=== PATIENT | female | born 1945 | race Caucasian/White ===

== ENCOUNTER 2018-05-25 18:08 | Emergency (ER) | payer MEDICARE, OTHER ==
[2018-05-25] MEDS ORDERED: diPHENhydraMINE PO* 50 MG PO ONE (18:34)
[2018-05-25] MEDS ORDERED: Famotidine TAB* 20 MG PO ONE (18:34)
[2018-05-25] MEDS ORDERED: predniSONE TAB* 20 MG PO ONE (18:34)
--- NOTE | 2018-05-25 18:34 | UC ---
Skin Complaint HPI - HPI Summary HPI Summary: The pt is a 73 y/o female presenting to s/p a bee sting since 1 hr. ago. She was stung under the eye while in the garden. She applied baking soda to no relief. The pt equates the sharp pain to being hit by a car. She notes palpitations, diarrhea and cough but denies SOB and difficulty swallowing. The pain is alleviated by lying down. The pt denies a hx of bee allergies. This is scribe Erica Koroma documenting for attending Dr. Tracy Jones, Dr. Molina , personally performed the services described in this documentation as scribed in my presence and it is both accurate and complete. - History of Current Complaint Chief Complaint: UCSkin Time Seen by Provider: 05/25/18 18:26 Stated Complaint: BEE STING Hx Obtained From: Patient, Family/Clarifying Plant Operator Onset/Duration: Sudden Onset - 1 hr ago Skin Exposure Onset/Duration: Hours Ago Timing: Constant Onset Severity: Severe Current Severity: Mild Pain Intensity: 0 Pain Scale Used: 0-10 Numeric Location: Diffuse - Below L eye Alleviating Factor(s): Other - Lying down Associated Signs & Symptoms: Positive: Negative - SOB , difficulty swallowing, Cough. Negative: Difficulty Breathing - Allergy/Home Medications Allergies/Adverse Reactions: Allergies Allergy/AdvReac Type Severity Reaction Status Date / Time No Known Allergies Allergy Verified 05/25/18 18:21 Home Medications: Home Medications Atorvastatin* [Lipitor 20 MG*] 20 mg PO DAILY 05/25/18 [History Confirmed ] amLODIPine TAB* [Norvasc 5 mg TAB*] 5 mg PO DAILY 05/25/18 [History Confirmed ] Review of Systems ENT: Negative - Difficulty swallowing Respiratory: Negative - SOB, Cough Cardiovascular: Palpitations Gastrointestinal: Diarrhea All Other Systems Reviewed And Are Negative: Yes PMH/Surg Hx/FS Hx/Imm Hx Previously Healthy: No - No known hx of HLD,CAD and DM Cardiovascular History: Hypertension - Surgical History Surgical History: Yes Surgery Procedure, Year, and Place: RT HIP REPLACEMNT, [facility], - Family History Known Family History: Positive: Cardiac Disease - Paternal CAD - Social History Occupation: Retired Lives: With Family Alcohol Use: Occasionally Substance Use Type: None Smoking Status (MU): Never Smoked Tobacco Physical Exam - Summary Physical Exam Summary: General: well-appearing, no pain distress Skin: warm, color reflects adequate perfusion, dry Head: Swelling of the L cheek Eyes: Erythema over the L eye, L scleral injection, EOMI, DEJAH ENT: normal Neck: supple, nontender Respiratory: Airways are open, CTA, breath sounds present Cardiovascular: RRR Abdomen: soft, nontender Bowel: present Musculoskeletal: normal, strength/ROM intact Neurological: sensory/motor intact, A&O x3 Psychological: affect/mood appropriate Triage Information Reviewed: Yes Vital Signs: Initial Vital Signs Temp 97.5 F 05/25/18 18:17 Pulse 65 05/25/18 18:17 Resp 20 05/25/18 18:17 BP 191/78 05/25/18 18:17 Pulse Ox 98 05/25/18 18:17 Vital Signs Reviewed: Yes Re-Evaluation - Re-Evaluation First Eval Re-Evaluation Time: 20:02 Change: Improved - The pt feels better and is ready to go home. Course/Dx - Course Course Of Treatment: IMPROVED IN CLINIC. - Diagnoses Provider Diagnoses: BEE STING FACE. ALLERGIC REACTION TO BEE STING Discharge - Sign-Out/Discharge Documenting (check all that apply): Patient Departure - Discharge Plan Condition: Stable Disposition: HOME Prescriptions: EPINEPHrine [Epipen 2-Russ] 0.3 mg IM ONCE PRN #1 inj PRN Reason: Allergy Symptoms Famotidine TAB* [Pepcid 20 MG TAB*] 20 mg PO BID PRN #8 tab PRN Reason: Allergy Symptoms predniSONE TAB* [Deltasone 20 MG TAB*] 40 mg PO DAILY PRN #8 tab PRN Reason: Allergy Symptoms Patient Education Materials: Insect Bite or Sting (ED), General Allergic Reaction (ED) Referrals: Madisyn Meza MD [Primary Care Provider] - Additional Instructions: FOLLOW UP WITH YOUR DOCTOR. TAKE BENADRYL 50MG EVERY 6 HOURS NEEDED. CONTINUE THE PEPCID AND PREDNISONE DIRECTED IF NEEDED. GET RECHECKED FOR ANY WORSENING OF YOUR CONDITION OR QUESTIONS OR CONCERNS. - Billing Disposition and Condition Condition: STABLE Disposition: Home
[2018-05-25 18:47] VITALS: BP 147/61
== END 2018-05-25 20:19 | disposition home or self-care (01) ==
LOC: UCEAST 18:08
DX: T63.441A Toxic effect of venom of bees, accidental (unintentional), initial encounter (principal); Y92.007 Garden or yard of unspecified non-institutional (private) residence as the place of occurrence of the external cause; I10 Essential (primary) hypertension
CPT/HCPCS: 99212; A9270-GY; G0463; J7512

== ENCOUNTER 2019-02-27 12:24 | Emergency (ER) | payer MEDICARE, OTHER ==
[2019-02-27 12:31] VITALS: BP 170/61
--- NOTE | 2019-02-27 12:38 | UC ---
General HPI - HPI Summary HPI Summary: Wasp bite on right hand today around noon when getting her mail out of the mailbox - last summer she had a wasp bite and had felt awful - like she had been hit by a car, palpitations and diarrhea. At that time she was given an epipen. No SOB or swelling at that time. Immediately after her sting she used her epipen and drove directly here. No mouth or tongue, or throat swelling. No cough or wheeze. No abdominal pain or vomiting. No rash. Feels a little off/jittery. Meds; reviewed - History of Current Complaint Chief Complaint: UCAllergicReaction Stated Complaint: ALLERGIC REACTION TO WASP STING Time Seen by Provider: 02/27/19 12:30 Pain Intensity: 5 - Allergy/Home Medications Allergies/Adverse Reactions: Allergies Allergy/AdvReac Type Severity Reaction Status Date / Time bee venom protein (honey bee) Allergy Anaphylatic Verified 02/27/19 12:31 Shock PMH/Surg Hx/FS Hx/Imm Hx Previously Healthy: Yes Cardiovascular History: Hypertension - Surgical History Surgical History: Yes Surgery Procedure, Year, and Place: Bilat HIP REPLACEMNT, [facility], - Family History Known Family History: Positive: Cardiac Disease - Paternal CAD - Social History Alcohol Use: Occasionally Substance Use Type: None Smoking Status (MU): Never Smoked Tobacco Review of Systems All Other Systems Reviewed And Are Negative: Yes Physical Exam Triage Information Reviewed: Yes Appearance: Well-Appearing Vital Signs: Initial Vital Signs Temp 97.3 F 02/27/19 12:26 Pulse 71 02/27/19 12:26 Resp 16 02/27/19 12:26 BP 170/61 02/27/19 12:26 Pulse Ox 96 02/27/19 12:26 Vital Signs Reviewed: Yes ENT: Positive: Normal ENT inspection Neck: Positive: Supple, Nontender Respiratory: Positive: Chest non-tender, Normal breath sounds Cardiovascular: Positive: RRR, No Murmur Abdomen Description: Positive: Soft Skin Exam: Normal Course/Dx - Course Course Of Treatment: This is a 74 yr old with a concern for anaphylaxis to wasps had another bite today s/p epi pen Assessment Monitored for 2 hours post wasp bite with no systems of anaphylaxis - really no symptoms at all. DIscussed that she may not actually have a true anaphylaxis allergy to wasps. Based on her presentation last summer it did not seem to be anaphylaxis but more of an adverse reaction to wasp bite. Will treat for anaphylaxis as a precautionary Plan Recommend prednisone 20 mg daily for 5 days Pepcid 20 mg daily for 5 days Benadryl as needed for itching or rash Keep epipen on hand for now as needed REcommend following up with an welder boilermaker - Diagnoses Provider Diagnosis: Wasp sting, Anaphylactic reaction Discharge - Sign-Out/Discharge Documenting (check all that apply): Patient Departure All imaging exams completed and their final reports reviewed: No Studies - Discharge Plan Condition: Good Disposition: HOME Prescriptions: Famotidine TAB* [Pepcid 20 MG TAB*] 20 mg PO DAILY #5 tab predniSONE [Prednisone 20 MG TAB] 20 mg PO DAILY #5 tablet Referrals: Madisyn Meza MD [Primary Care Provider] - Argenis Franz MD [Medical Doctor] - Additional Instructions: Your reaction to wasp sting may be an adverse reaction rather than a true anphylaxis reaction Recommend prednisone 20 mg daily for 5 days Pepcid 20 mg daily for 5 days Benadryl as needed for itching or rash Keep epipen on hand for now as needed REcommend following up with an welder boilermaker - Billing Disposition and Condition Condition: GOOD Disposition: Home
--- OUTSIDE RECORDS SUMMARY | 2019-02-27 12:45 | XMS REPORT | Continuity of Care Document ---
:1945 External Reference #:[id number] Author Name SharathcarolSherry Care Team Providers Name Role Phone Madisyn Meza MD Primary Care Physician Unavailable Payers Date Identification Numbers Payment Provider Subscriber Effective: 2009 Policy Number: [id number] Medicare Marilou Padilla PayID: [id number] [address] [place] [address] Expires: 2016 Policy Number: [id number] [employer] Davon Magaña Group Number: [id number] [address] PayID: [id number] [place] [address] Policy Number: [id number] [employer]-[facility] Marilou Padilla PayID: [id number] [address] [place] [address] Advance Directives Type Date Description Status Comment [facility] 06/24/2014 MOL Current and Verified Problems Date Description Provider Status Onset: 01/12/2012 Benign essential hypertension Marlene Barrera M.D. Active Onset: 02/14/2012 Hyperlipidemia Marlene Barrera M.D. Active Family History Date Family Member(s) Observation Comments : (age 82 Father due to Unknown pt reports he had Years) Causes coronary problems but did not cause his . 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 ETOH Use Consumes 1 glass of with dinner wine per day Tobacco Use Start: Unknown Patient has never smoked Recreational Drug Use Denies Drug Use Smoking Status Reviewed: 01/30/19 Patient has never smoked Exercise Type/Frequency Exercises regularly Exercise Type/Frequency walks dog daily Allergies, Adverse Reactions, Alerts Date Description Reaction Status Severity Comments 01/07/2012 NKDA Active 05/29/2018 Bee Sting Anaphylaxis Active Medications Medication Date Status Form Strength Qnty SIG Indications Ordering Provider Azithromycin 01/30 Active Tablets 250mg 6tabs 2 tabs by mouth R05 on day 1; 1 tab Cotton, by mouth every M.D. day on days 2-5 Benzonatate 01/30 Active Capsules 200mg 30cap take 1 capsule R05 s by mouth three Cotton, times a day if M.D. needed Diclofenac 11/20 Active Gel 1% 100un apply not more M19.049 Madisyn Sodium its than 2 grams to Cotton, the hands 4 M.D. times a day as needed Atorvastatin 08/19 Active Tablets 10mg 90tab take one tablet Madisyn s by mouth every Cotton, day M.D. Fish Oil Active Capsules [address] de la garza Norvasc Active Tablets 5mg 90tab 1 by mouth Madisyn /0000 s every day Cotton, M.D. Tylenol 8 Active Tablets 650mg one every 6 Unknown Hour /0000 ER hours as needed Arthritis for pains Pain Epipen 2-Russ Active Solution 0.3mg/0.3 use as directed Auto-Inje ML ct Tobramycin 01/28 Hx Solution 0.3% 5ml 2 drops in H10.9 affected eye Cotton, - every 4 hours M.D. 10/24 while awake until clear- should take 4-5 days Doxycycline 08/19 Hx Capsules 100mg 2caps take 2 tablets Madisyn Hyclate one time Cotton, - M.D. 08/21 Fyi 11/01 Hx Tablets 10mg 90tab take one tablet s by mouth every Cotton, - day M.D. 11/13 Estrace 08/22 Hx Cream 0.1mg/GM 42.50 insert 1-2 627.3 0gm g/day Shlomo, - intravaginally M.D. 11/13 for 1 week, then reduce to 1/2 the initial dose for 1 week, then 1 g/week for maintenance [facility] 01/23 Hx Tablets 5mg 30tab 1/2 po qd Kingsley s Wanda Echevarria M.DYazmin 01/31 [facility] 01/11 Hx Tablets 5mg 30tab 1 po qd Qutayb s Joni Barrera, 01/23 M.D. /2011 Probiotic Hx Capsules 1 po qd Unknown /0000 - 02/13 Calcium Hx Tablets 1 po qd Unknown /0000 - 02/13 Multiple Hx Tablets 100ta 1 po qd Unknown Vitamin /0000 bs - 05/02 Immunizations CPT Code Status Date Vaccine Lot # [id number] Given 07/11/2018 Influenza Virus Vaccine, Quadrivalent, Split, [id number] Preservative Free 86890 Given 08/12/2017 Fluzone High Dose 86960 Given 11/01/2014 Pneumococcal Conjugate Vaccine 13 Valent For [id number] Intramuscular Use 56611 Given 10/30/2013 Zoster (Zostavax) [id number] 99644 Given 08/22/2013 Pneumonia Vaccine [id number] Vital Signs Date Vital Result Comment 01/30/2019 10:19am Height 64.5 inches 5'4.50" Weight 165.00 lb Heart Rate 71 /min BP Systolic Sitting 162 mmHg BP Diastolic Sitting 81 mmHg Body Temperature 100.8 F O2 % BldC Oximetry 95 % BMI (Body Mass Index) 27.9 kg/m2 12/19/2018 8:29am Height 64.5 inches 5'4.50" Heart Rate 80 /min BP Systolic Sitting 138 mmHg BP Diastolic Sitting 71 mmHg O2 % BldC Oximetry 97 % 11/20/2018 3:26pm Height 64.5 inches 5'4.50" Weight 166.00 lb Heart Rate 60 /min BP Systolic Sitting 117 mmHg BP Diastolic Sitting 63 mmHg O2 % BldC Oximetry 97 % BMI (Body Mass Index) 28.1 kg/m2 11/17/2017 2:41pm Height 64.5 inches 5'4.50" Weight 152.75 lb Heart Rate 61 /min BP Systolic 140 mmHg BP Diastolic 68 mmHg Body Temperature 98.2 F O2 % BldC Oximetry 97 % BMI (Body Mass Index) 25.8 kg/m2 10/25/2017 11:01am Height 65 inches 5'5" Weight 150.12 lb without shoes Heart Rate 56 /min BP Systolic Sitting 122 mmHg LA, reg cuff BP Diastolic Sitting 66 mmHg LA, reg cuff BMI (Body Mass Index) 25.0 kg/m2 Ejection Fraction 60%-65% echo 01/21/12 01/28/2017 4:53pm Heart Rate 56 /min BP Systolic Sitting 116 mmHg BP Diastolic Sitting 78 mmHg Body Temperature 98.5 F O2 % BldC Oximetry 96 % 11/15/2016 10:27am Height 64 inches 5'4" Weight 154.00 lb Heart Rate 82 /min BP Systolic Sitting 136 mmHg BP Diastolic Sitting 72 mmHg Body Temperature 98.0 F O2 % BldC Oximetry 97 % BMI (Body Mass Index) 26.4 kg/m2 11/01/2016 10:18am Height 64 inches 5'4" Weight 157.00 lb Heart Rate 59 /min BP Systolic 128 mmHg BP Diastolic 62 mmHg Body Temperature 97.7 F O2 % BldC Oximetry 98 % BMI (Body Mass Index) 26.9 kg/m2 09/23/2016 1:27pm Height 64 inches 5'4" Weight 156.75 lb Heart Rate 60 /min BP Systolic Sitting 138 mmHg LA reg BP Diastolic Sitting 74 mmHg LA reg BMI (Body Mass Index) 26.9 kg/m2 Ejection Fraction 60%-65% 01/31/12 11/13/2015 11:01am Height 64 inches 5'4" Weight 146.75 lb Heart Rate 60 /min BP Systolic Sitting 124 mmHg BP Diastolic Sitting 72 mmHg Body Temperature 96.3 F O2 % BldC Oximetry 98 % BMI (Body Mass Index) 25.2 kg/m2 08/19/2015 1:07pm Height 65 inches 5'5" Weight 146.25 lb with out shoes Heart Rate 64 /min BP Systolic Sitting 132 mmHg LA reg cuff BP Diastolic Sitting 82 mmHg LA reg cuff Respiratory Rate 16 /min BMI (Body Mass Index) 24.3 kg/m2 Ejection Fraction 60-65% date 01/31/12 ECHO 05/01/2015 11:11am Weight 150.00 lb Heart Rate 57 /min BP Systolic Sitting 138 mmHg BP Diastolic Sitting 76 mmHg Body Temperature 96.8 F 11/01/2014 10:27am Height 65 inches 5'5" Weight 152.00 lb Heart Rate 62 /min BP Systolic 144 mmHg BP Diastolic 72 mmHg Body Temperature 98.3 F BMI (Body Mass Index) 25.3 kg/m2 10/22/2014 11:27am Height 65 inches 5'5" Weight 151.00 lb Heart Rate 59 /min BP Systolic Sitting 154 mmHg BP Diastolic Sitting 82 mmHg Body Temperature 97.7 F O2 % BldC Oximetry 98 % BMI (Body Mass Index) 25.1 kg/m2 06/20/2014 3:57pm Height 65 inches 5'5" Weight 151.00 lb Heart Rate 84 /min BP Systolic 142 mmHg LA sitting regular cuf BP Diastolic 80 mmHg LA sitting regular cuf BMI (Body Mass Index) 25.1 kg/m2 04/01/2014 9:03am Height 65 inches 5'5" Weight 150.00 lb Heart Rate 68 /min BP Systolic Sitting 120 mmHg BP Diastolic Sitting 64 mmHg BMI (Body Mass Index) 25.0 kg/m2 11/13/2013 9:57am Weight 161.50 lb Heart Rate 72 /min BP Systolic 124 mmHg BP Diastolic 64 mmHg 10/30/2013 9:47am Weight 160.00 lb Heart Rate 64 /min BP Systolic Sitting 142 mmHg BP Diastolic Sitting 80 mmHg 08/22/2013 1:31pm Height 64.25 inches 5'4.25" Weight 157.25 lb Heart Rate 58 /min BP Systolic Sitting 126 mmHg BP Diastolic Sitting 64 mmHg BMI (Body Mass Index) 26.8 kg/m2 05/02/2013 10:58am Height 65 inches 5'5" Weight 154.00 lb Heart Rate 54 /min BP Systolic Sitting 140 mmHg BP Diastolic Sitting 80 mmHg Respiratory Rate 20 /min BMI (Body Mass Index) 25.6 kg/m2 02/14/2012 1:46pm Height 65 inches 5'5" Weight 155.00 lb Heart Rate 72 /min BP Systolic Sitting 126 mmHg BP Diastolic Sitting 62 mmHg BMI (Body Mass Index) 25.8 kg/m2 01/24/2012 3:41pm Height 65 inches 5'5" Weight 154.00 lb Heart Rate 58 /min BP Systolic Sitting 140 mmHg L BP Diastolic Sitting 70 mmHg L BMI (Body Mass Index) 25.6 kg/m2 01/12/2012 1:06pm Height 65 inches 5'5" Weight 153.00 lb BP Systolic 160 mmHg right arm, left arm 162/82 BP Diastolic 86 mmHg right arm, left arm 162/82 BP Systolic Sitting 172 mmHg right arm BP Diastolic Sitting 98 mmHg right arm BMI (Body Mass Index) 25.5 kg/m2 Results Test Date Facility Test Result H/L Range Note Lipid Profile 11/17/2018 [facility] Triglycerides 112 mg/dL 1 (Trig/Chol/HDL) [address] [place] [address] [phone] Cholesterol 170 mg/dL 2 HDL Cholesterol 69.8 mg/dL 3 LDL Cholesterol 78 mg/dL 4 Comp Metabolic Panel 11/17/2018 [facility] Sodium 142 mmol/L N 135-[address] [place] [address] [phone] Potassium 3.9 mmol/L N 3.5-5.0 Chloride 107 mmol/L N 101-111 Co2 Carbon Dioxide 29 mmol/L N 22-32 Anion Gap 6 mmol/L N 2-11 Glucose 97 mg/dL N 70-100 Blood Urea Nitrogen 16 mg/dL N 6-24 Creatinine 0.73 mg/dL N 0.51-0.95 BUN/Creatinine Ratio 21.9 High 8-20 Calcium 9.6 mg/dL N 8.6-10.3 Total Protein 6.5 g/dL N 6.4-8.9 Albumin 4.2 g/dL N 3.2-5.2 Globulin 2.3 g/dL N 2-4 Albumin/Globulin Ratio 1.8 N 1-3 Total Bilirubin 0.90 mg/dL N 0.2-1.0 Alkaline Phosphatase 102 U/L N 34-104 Alt 16 U/L N 7-52 Ast 18 U/L N 13-39 Egfr Non- 77.9 >60 Egfr 94.3 >60 5 Laboratory test 11/23/2017 [facility] Medicare Negative finding Lipid Profile 11/15/2017 [facility] Triglycerides 96 mg/dL 6 (Trig/Chol/HDL) [address] [place] [address] [phone] Cholesterol 192 mg/dL 7 HDL Cholesterol 79.8 mg/dL 8 LDL Cholesterol 93 mg/dL 9 Comp Metabolic Panel 11/15/2017 [facility] Sodium 139 mmol/L N 133-145 [address] [place] [address] [phone] Potassium 4.2 mmol/L N 3.5-5.0 Chloride 105 mmol/L N 101-111 Co2 Carbon Dioxide 31 mmol/L N 22-32 Anion Gap 3 mmol/L N 2-11 Glucose 96 mg/dL N 70-100 Blood Urea Nitrogen 15 mg/dL N 6-24 Creatinine 0.72 mg/dL N 0.51-0.95 BUN/Creatinine Ratio 20.8 High 8-20 Calcium 9.6 mg/dL N 8.6-10.3 Total Protein 6.8 g/dL N 6.4-8.9 Albumin 4.2 g/dL N 3.2-5.2 Globulin 2.6 g/dL N 2-4 Albumin/Globulin Ratio 1.6 N 1-3 Total Bilirubin 0.80 mg/dL N 0.2-1.0 Alkaline Phosphatase 103 U/L N 34-104 Alt 18 U/L N 7-52 Ast 20 U/L N 13-39 Egfr Non- 79.4 >60 Egfr 102.1 >60 10 Laboratory test 12/30/2016 [facility] Occult Blood - Stool neg x 3 finding Lipid Profile 11/08/2016 [facility] Triglycerides 68 mg/dL N 11 (Trig/Chol/HDL) [address] [place] [address] [phone] Cholesterol 157 mg/dL N 12 HDL Cholesterol 70.1 mg/dL N 13 LDL Cholesterol 73 mg/dL N 14 Comp Metabolic Panel 11/08/2016 [facility] Sodium 141 mmol/L N 133-145 [address] [place] [address] [phone] Potassium 4.5 mmol/L N 3.5-5.0 Chloride 107 mmol/L N 101-111 Co2 Carbon Dioxide 30 mmol/L N 22-32 Anion Gap 4 mmol/L N 2-11 Glucose 96 mg/dL N 70-100 Blood Urea Nitrogen 14 mg/dL N 6-24 Creatinine 0.67 mg/dL N 0.51-0.95 BUN/Creatinine Ratio 20.9 High 8-20 Calcium 9.3 mg/dL N 8.6-10.3 Total Protein 6.3 g/dL Low 6.4-8.9 Albumin 4.0 g/dL N 3.2-5.2 Globulin 2.3 g/dL N 2-4 Albumin/Globulin Ratio 1.7 N 1-3 Total Bilirubin 0.90 mg/dL N 0.2-1.0 Alkaline Phosphatase 90 U/L N 34-104 Alt 15 U/L N 7-52 Ast 16 U/L N 13-39 Egfr Non- 86.5 N >60 Egfr 111.3 N >60 15 Laboratory test 11/08/2016 [facility] Prolactin 24.1 ng/mL N 1.0-25.0 finding [address] [place] [address] [phone] TSH (Thyroid Stim Horm) 0.74 mcIU/mL N 0.34-5.60 Lipid Profile 11/10/2015 [facility] Triglycerides 94 mg/dL N 16 (Trig/Chol/HDL) [address] [place] [address] [phone] Cholesterol 162 mg/dL N 17 HDL Cholesterol 60.6 mg/dL N 18 LDL Cholesterol 83 mg/dL N 19 Comp Metabolic Panel 11/10/2015 [facility] Sodium 139 mmol/L N 133-145 [address] [place] [address] [phone] Potassium 4.2 mmol/L N 3.5-5.0 Chloride 104 mmol/L N 101-111 Co2 Carbon Dioxide 30 mmol/L N 22-32 Anion Gap 5 mmol/L N 2-11 Glucose 91 mg/dL N 70-100 Blood Urea Nitrogen 18 mg/dL N 6-24 Creatinine 0.79 mg/dL N 0.51-0.95 BUN/Creatinine Ratio 22.8 High 8-20 Calcium 9.2 mg/dL N 8.6-10.3 Total Protein 6.6 g/dL N 6.4-8.9 Albumin 4.2 g/dL N 3.2-5.2 Globulin 2.4 g/dL N 2-4 Albumin/Globulin Ratio 1.8 N 1-3 Total Bilirubin 0.80 mg/dL N 0.2-1.0 Alkaline Phosphatase 109 U/L High 34-104 Alt 17 U/L N 7-52 Ast 16 U/L N 13-39 Egfr Non- 71.7 N >60 Egfr 92.3 N >60 20 Laboratory test 11/10/2015 [facility] Prolactin 23.7 ng/mL N 1.0-25.0 [address] [place] [address] [phone] TSH (Thyroid Stim Horm) 2.00 ?IU/mL N 0.34-5.60 22 Laboratory test finding 12/27/2014 Prolactin 24.8 ng/mL N 1.0-25.0 Lipid Profile (Trig/Chol/HDL) 12/27/2014 Triglycerides 92 mg/dL N 23 Cholesterol 168 mg/dL N 24 HDL Cholesterol 65.2 mg/dL N 25 LDL Cholesterol 84 mg/dL N 26 Laboratory test finding 12/27/2014 Ast 17 U/L N Alt 15 U/L N 7- Comp Metabolic Panel 10/25/2014 [facility] Sodium 140 mmol/L N 133-145 27 [address] [place] [address] [phone] Potassium 4.2 mmol/L N 3.5-5.0 Chloride 105 mmol/L N 101-111 Co2 Carbon Dioxide 32 mmol/L N 22-32 Anion Gap 3 mmol/L N 2-11 Glucose 79 mg/dL N 70-100 Blood Urea Nitrogen 18 mg/dL N 6-24 Creatinine 0.73 mg/dL N 0.51-0.95 BUN/Creatinine Ratio 24.7 High 8-20 Calcium 9.4 mg/dL N 8.6-10.3 Total Protein 6.5 g/dL N 6.4-8.9 Albumin 4.1 g/dL N 3.2-5.2 Globulin 2.4 g/dL N 2-4 Albumin/Globulin Ratio 1.7 N 1-3 Total Bilirubin 0.90 mg/dL N 0.2-1.0 Alkaline Phosphatase 94 U/L N 34-104 Alt 14 U/L N 7- Ast 17 U/L N 13-39 Egfr Non- 78.8 N >60 Egfr 101.4 N >60 28 Lipid Profile 10/25/2014 [facility] Triglycerides 126 mg/dL N 29 (Trig/Chol/HDL) [address] [place] [address] [phone] Cholesterol 234 mg/dL N 30 HDL Cholesterol 60.3 mg/dL N 31 LDL Cholesterol 149 mg/dL N 32 Lipid Profile 03/28/2014 [facility] Triglycerides 80 mg/dL N 33, 34 (Trig/Chol/HDL) [address] [place] [address] [phone] Cholesterol 200 mg/dL N 35 HDL Cholesterol 57.0 mg/dL N 36 LDL Cholesterol 127 mg/dL N 37 Laboratory test 11/07/2013 [facility] TSH (Thyroid 1.16 0.34- 5.[address] [facility] Stimulating miu/[place] [address] Horm) [phone] Free T4 0.93 ng/mL 0.61-1.24 39 Prolactin 27.15 ng/mL High 1.0-25.0 40 Basic Metabolic Panel 11/07/2013 [facility] Sodium 138 mmol/L 133-145 [address] [place] [address] [phone] Potassium 4.1 mmol/L 3.5-5.0 Chloride 105 mmol/L 101-111 Co2 Carbon Dioxide 28.0 mmol/L 22-32 Anion Gap 5.0 mmol/L 2-11 Glucose 85 mg/dL 70-100 Blood Urea Nitrogen 10 mg/dL 6-24 Creatinine 0.70 mg/dL 0.50-1.40 BUN/Creatinine Ratio 14.3 8-20 Calcium 9.2 mg/dL 8.1-9.9 Egfr Non- 83.0 >60 Egfr 106.7 >60 41 Lipid Profile 11/07/2013 [facility] Triglycerides 84 mg/dL 40 -200 (Trig/Chol/HDL) [address] [place] [address] [phone] Cholesterol 262 mg/dL High Less than 200 HDL Cholesterol 63 mg/dL High 40-60 42 Cholesterol/HDL Ratio 4.2 Average 1-4.44 LDL Cholesterol 182.2 High Less Than 100 43 Laboratory test 10/30/2013 [facility] Prolactin 30.61 ng/mL High 1.0-25.0 finding [address] [place] [address] [phone] Laboratory test 01/27/2012 [facility] TSH 1.66 MIU/ML 0.34- 5.60 finding [address] [place] [address] [phone] Thyroxine 8.4 g/dL 5-12 T3 Total 1.01 NG/ML 0.5-1.7 1 Desirable: <150 Borderline High: 150-199 High: 200-499 Very High: >500 2 Desirable: <200 Borderline High: 200-239 High: >239 3 Low: <40 Desirable: 40-60 High: >60 4 Desirable: <100 Near Optimal: 100-129 Borderline High: 130-159 High: 160-189 Very High: >189 5 Because ethnic data is not always readily available, this report includes an eGFR for both -Americans and non- Americans. The National Kidney Disease Education Program (NKDEP) does not endorse the use of the MDRD equation for patients that are not between the ages of 18 and 70, are , have extremes of body size, muscle mass, or nutritional status, or are non- or non-. According to the National Kidney Foundation, irrespective of diagnosis, the stage of the disease is based on the level of kidney function: Stage Description GFR(mL/min/1.73 m(2)) 1 Kidney damage with normal or decreased GFR 90 2 Kidney damage with mild decrease in GFR 60-89 3 Moderate decrease in GFR 30-59 4 Severe decrease in GFR 15-29 5 Kidney failure <15 (or dialysis) 6 Desirable: <150 Borderline High: 150-199 High: 200-499 Very High: >500 7 Desirable: <200 Borderline High: 200-239 High: >239 8 Low: <40 Desirable: 40-60 High: >60 9 Desirable: <100 Near Optimal: 100-129 Borderline High: 130-159 High: 160-189 Very High: >189 10 Because ethnic data is not always readily available, this report includes an eGFR for both -Americans and non- Americans. The National Kidney Disease Education Program (NKDEP) does not endorse the use of the MDRD equation for patients that are not between the ages of 18 and 70, are , have extremes of body size, muscle mass, or nutritional status, or are non- or non-. According to the National Kidney Foundation, irrespective of diagnosis, the stage of the disease is based on the level of kidney function: Stage Description GFR(mL/min/1.73 m(2)) 1 Kidney damage with normal or decreased GFR 90 2 Kidney damage with mild decrease in GFR 60-89 3 Moderate decrease in GFR 30-59 4 Severe decrease in GFR 15-29 5 Kidney failure <15 (or dialysis) 11 Desirable <150 Borderline high 150-199 High 200-499 Very High >500 12 Desirable <200 Borderline high 200-239 High >239 13 Low <40 Desirable: 40-60 High: >60 14 Desirable: <100 mg/dL Near Optimal: 100-129 mg/dL Borderline High: 130-159 mg/dL High: 160-189 mg/dL Very High: >189 mg/dL 15 Because ethnic data is not always readily available, this report includes an eGFR for both -Americans and non- Americans. The National Kidney Disease Education Program (NKDEP) does not endorse the use of the MDRD equation for patients that are not between the ages of 18 and 70, are , have extremes of body size, muscle mass, or nutritional status, or are non- or non-. According to the National Kidney Foundation, irrespective of diagnosis, the stage of the disease is based on the level of kidney function: Stage Description GFR(mL/min/1.73 m(2)) 1 Kidney damage with normal or decreased GFR 90 2 Kidney damage with mild decrease in GFR 60-89 3 Moderate decrease in GFR 30-59 4 Severe decrease in GFR 15-29 5 Kidney failure <15 (or dialysis) 16 Desirable <150 Borderline high 150-199 High 200-499 Very High >500 17 Desirable <200 Borderline high 200-239 High >239 18 Low <40 Desirable: 40-60 High: >60 19 Desirable: <100 mg/dL Near Optimal: 100-129 mg/dL Borderline High: 130-159 mg/dL High: 160-189 mg/dL Very High: >189 mg/dL 20 Because ethnic data is not always readily available, this report includes an eGFR for both -Americans and non- Americans. The National Kidney Disease Education Program (NKDEP) does not endorse the use of the MDRD equation for patients that are not between the ages of 18 and 70, are , have extremes of body size, muscle mass, or nutritional status, or are non- or non-. According to the National Kidney Foundation, irrespective of diagnosis, the stage of the disease is based on the level of kidney function: Stage Description GFR(mL/min/1.73 m(2)) 1 Kidney damage with normal or decreased GFR 90 2 Kidney damage with mild decrease in GFR 60-89 3 Moderate decrease in GFR 30-59 4 Severe decrease in GFR 15-29 5 Kidney failure <15 (or dialysis) 21 FASTING 12 HOUR 22 FASTING 12 HOUR 23 Desirable <150 Borderline high 150-199 High 200-499 Very High >500 24 Desirable <200 Borderline high 200-239 High >239 25 Low <40 Desirable: 40-60 High: >60 26 Desirable: <100 mg/dL Near Optimal: 100-129 mg/dL Borderline High: 130-159 mg/dL High: 160-189 mg/dL Very High: >189 mg/dL 27 FASTING 8 HOUR 28 Because ethnic data is not always readily available, this report includes an eGFR for both -Americans and non- Americans. The National Kidney Disease Education Program (NKDEP) does not endorse the use of the MDRD equation for patients that are not between the ages of 18 and 70, are , have extremes of body size, muscle mass, or nutritional status, or are non- or non-. According to the National Kidney Foundation, irrespective of diagnosis, the stage of the disease is based on the level of kidney function: Stage Description GFR(mL/min/1.73 m(2)) 1 Kidney damage with normal or decreased GFR 90 2 Kidney damage with mild decrease in GFR 60-89 3 Moderate decrease in GFR 30-59 4 Severe decrease in GFR 15-29 5 Kidney failure <15 (or dialysis) 29 Desirable <150 Borderline high 150-199 High 200-499 Very High >500 30 Desirable <200 Borderline high 200-239 High >239 31 Low <40 Desirable: 40-60 High: >60 32 Desirable <100 Near Optimal 100-129 Borderline high 130-159 High 160-189 Very High >189 33 FASTING 10 HOUR~Please obtain a few days before your March 2014 appointment 34 Desirable <150 Borderline high 150-199 High 200-499 Very High >500 35 Desirable <200 Borderline high 200-239 High >239 36 Low <40 Desirable: 40-60 High: >60 37 Desirable <100 Near Optimal 100-129 Borderline high 130-159 High 160-189 Very High >189 38 FASTING 10 HOUR 39 FASTING 10 HOUR 40 FASTING 10 HOUR 41 Because ethnic data is not always readily available, this report includes an eGFR for both -Americans and non- Americans. The National Kidney Disease Education Program (NKDEP) does not endorse the use of the MDRD equation for patients that are not between the ages of 18 and 70, are , have extremes of body size, muscle mass, or nutritional status, or are non- or non-. According to the National Kidney Foundation, irrespective of diagnosis, the stage of the disease is based on the level of kidney function: Stage Description GFR(mL/min/1.73 m(2)) 1 Kidney damage with normal or decreased GFR 90 2 Kidney damage with mild decrease in GFR 60-89 3 Moderate decrease in GFR 30-59 4 Severe decrease in GFR 15-29 5 Kidney failure <15 (or dialysis) 42 HDL Interpretation: Undesirable: High Risk: Less than 40 mg/dL Desirable: Low Risk: Greater than 60 mg/dL 43 LDL Interpretation: Low Risk Optimal Level: LDL Less than 100 mg/dL Near or Above Optimal: LDL 100-129 mg/dL Borderline High Risk: LDL 130-159 mg/dL High Risk: LDL 160-189 mg/dL Very High Risk: LDL Greater than 189 mg/dL Procedures Date Code Description Status 10/25/2017 30191 EKG Tracing & Interpretation Completed 09/23/2017 [id number] Mammogram Completed 09/23/2016 80191 EKG Tracing & Interpretation Completed 10/06/2015 [id number] Mammogram Completed 08/19/2015 81483 EKG Tracing & Interpretation Completed 10/04/2014 [id number] Mammogram Completed 06/20/2014 06588 EKG Tracing & Interpretation Completed 10/02/2013 [id number] Bone Mineral Density Test Completed 10/02/2013 [id number] Mammogram Completed 05/02/2013 62581 EKG Tracing & Interpretation Completed 02/21/2012 [id number] Holter Monitoring 24 HR New Completed 01/31/2012 01649 Color Flow Doppler/Interp & Reprt Completed 01/31/2012 15197 Pulse Wave/Continuous-Interp.RPT Completed 01/31/2012 95343 ECHO Transthorasic Realtime 2D W Doppler & Color Flow Completed Hosp 01/27/2012 50135 Treadmill Interp/Report Only Completed 01/27/2012 67528 Stress Test Supervsn W/Out I/R Completed 01/24/2012 83724 EKG Tracing & Interpretation Completed 01/12/2012 38469 EKG Tracing & Interpretation Completed Encounters Type Date Location Provider Dx Diagnosis Office Visit 12/19/2018 [facility] Madisyn H61.21 Impacted cerumen, 8:40a Julio Meza M.D. right ear [place] Office Visit 10/25/2017 [facility] Qutaybeh S. I10 Essential ( primary) 11:00a Mary Barrera hypertension E78.2 Mixed hyperlipidemia R94.31 Abnormal electrocardiogram [ECG] [EKG] Office Visit 01/28/2017 4:40p [facility] Mad[place] H10.9 Unspecified Julio Meza M.D. conjunctivitis H61.21 Impacted cerumen, right ear Office Visit 11/01/2016 10:20a [facility] Mad[facility] Z71.9 Counseling, Julio Meza M.D. unspecified Office Visit 09/23/2016 1:20p Vitor Rosario S. I10 Essential Cardiology Mary Barrera (primary) hypertension E78.2 Mixed hyperlipidemia R94.31 Abnormal electrocardiogram [ECG] [EKG] R00.1 Bradycardia, unspecified Office Visit 11/13/2015 10:40a [facility] Madisyn Z00.00 Encntr for Julio Meza M.D. general adult medical exam w/o abnormal findings I10 Essential (primary) hypertension D35.2 Benign neoplasm of pituitary gland E78.2 Mixed hyperlipidemia M79.644 Pain in right finger(s) Office Visit 08/19/2015 1:20p [facility] Bertintaybisha S. I10 Essential Mary Barrera (primary) hypertension E78.2 Mixed hyperlipidemia Office Visit 05/01/2015 11:00a [facility] Madisyn 401.1 Hypertension Julio Meza M.D. 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 380.4 Impacted Cerumen Office Visit 10/30/2013 9:40a [facility] Heather Keenan, V12.29 Personal HX Ohter Medicine Mary Endocrine, Metabolic & Immunity Disorder V04.89 Need For Prophylactic Vaccination & Inoculation Other Virus Office Visit 08/22/2013 1:40p [facility] Isabel Keenan, V70.0 Examination Medicine [facility] Routine [facility] V76.10 Screening For Malignant Neoplasm Breast 627.9 Menopausal & Postmenopausal Disorder Unspec V03.82 Streptococcus Pneumoniae Vaccination Spec Other 627.3 Atrophic Vaginitis Postmenopausal Office Visit 05/02/2013 Vitor Quinones 401.1 Hypertension 11:00a Cardiology Mary Barrera Benign 272.4 Hyperlipidemia Other Unspec 424.2 Tricuspid Valve Disorder Spec as Nonrheumatic 424.0 Mitral Valve Disorder 794.31 Electrocardiogram (ECG) (EKG) Abnormal Office Visit 02/14/2012 Vitor Quinones 401.1 Hypertension 2:00p Elana Barrera M.D. Benign 272.4 Hyperlipidemia Other Unspec 424.2 Tricuspid Valve Disorder Spec as Nonrheumatic 424.0 Mitral Valve Disorder Office Visit 02/04/2012 Vitor Nurse Visit 401.1 Hypertension Benign 8:15a Cardiology cc Office Visit 01/24/2012 Vitor Mohr 794.31 Electrocardiogram 4:00p Cardiology Mary Roberts (ECG) (EKG) Abnormal 401.1 Hypertension Benign 786.09 Dyspnea & Respiratory Abnormalities Other Office 01/12/2012 Vitor Quinones 794.31 Electrocardiogram Visit 1:40p Cardiology AT Mary Barrera (ECG) (EKG) Abnormal [facility] 401.1 Hypertension Benign 272.4 Hyperlipidemia Other Unspec Plan of Treatment Future Appointment(s):04/24/2019 3:40 pm - Madisyn Meza M.D. at [facility] Nqnjewhr31/16/2019 - Madisyn Meza M.D.R05 CoughNew Medication: Azithromycin 250 mg - 2 tabs by mouth on day 1; 1 tab by mouth every day on days 2-5Benzonatate 200 mg - take 1 capsule by mouth three times a day if neededComments:Start the antibioticFor cough- over the counter - Mucinex and equivalents- benzonatate - try this first- guaifenesin with codeine - call me if needed
== END 2019-02-27 13:51 | disposition home or self-care (01) ==
LOC: UCEAST 12:24
DX: T63.461A Toxic effect of venom of wasps, accidental (unintentional), initial encounter (principal); I10 Essential (primary) hypertension; Z91.030 Bee allergy status; Y92.9 Unspecified place or not applicable
CPT/HCPCS: 99212; G0463